=== PATIENT | male | born 1945 | race Caucasian/White ===

== ENCOUNTER 2016-09-19 11:28 | Day surgery (SDC) | payer MEDICARE, BC ==
[2016-09-16 15:07] VITALS: BMI 27.0
[~2016-09-19 11:28] MED LIST: LACTATED RINGERS 1,000 ML IV SCH
[2016-09-19] MEDS ORDERED: LACTATED RINGERS 1,000 ML IV ONE (11:52)
[2016-09-19 11:56] VITALS: TEMP 98
[2016-09-19] MEDS ORDERED: LIDOCAINE 1% 20 ML VIAL (10MG/ML) FOR IV START INTRADERMA ONE (12:04)
[2016-09-19] MEDS ORDERED: PROPOFOL 10 MG/ML 20 ML VIAL IV ONE (12:41)
[2016-09-19] MEDS ORDERED: MIDAZOLAM 2 MG/2 ML VIAL ONE (12:41)
--- NOTE | 2016-09-19 12:43 | P.GSHP ---
History of Present Illness H&P Date: 09/19/16 Chief Complaint: GERD, screening Patient today for upper and lower endoscopy. History of chronic reflux. Currently he is taking Zantac with some control the symptoms. No bowel related complaints. Past Medical History Past Medical History: CVA/TIA, GERD/Reflux Additional Past Medical History / Comment(s): CVA with TIA History of Any Multi-Drug Resistant Organisms: None Reported Past Surgical History: No Surgical Hx Reported Additional Past Surgical History / Comment(s): COLONOSCOPY Past Anesthesia/Blood Transfusion Reactions: No Reported Reaction Past Psychological History: No Psychological Hx Reported Smoking Status: Never smoker Past Alcohol Use History: Occasional Past Drug Use History: None Reported - Past Family History Mother Family Medical History: No Reported History Medications and Allergies Home Medications Medication Instructions Recorded Confirmed Type Spironolactone [Aldactone] 25 mg PO DAILY 05/12/14 09/19/16 History Aspirin EC [Ecotrin] 325 mg PO DAILY 09/18/14 09/16/16 History Ranitidine HCl [Zantac] 150 mg PO DAILY 09/16/16 09/19/16 History Allergies Allergy/AdvReac Type Severity Reaction Status Date / Time Penicillins AdvReac Unknown Verified 09/18/14 07:41 Surgical - Exam Vital Signs Temp Pulse Resp BP Pulse Ox 98.0 F 75 18 130/75 98 09/19/16 11:52 09/19/16 11:52 09/19/16 11:52 09/19/16 11:52 09/19/16 11:52 Physical exam: General: Well-developed, well-nourished HEENT: Normocephalic, sclerae nonicteric Abdomen: Nontender, nondistended Extremities: No edema Neuro: Alert and oriented Assessment and Plan (1) Colon cancer screening Narrative/Plan: Will proceed with upper and lower endoscopy at this time. Status: Acute
--- NOTE | 2016-09-19 13:01 | P.PCN ---
Date of Procedure: 09/19/16 Procedure(s) Performed: PREOPERATIVE DIAGNOSIS: GERD, screening POSTOPERATIVE DIAGNOSIS: Gastritis, small hiatal hernia, normal colon PROCEDURE: 1. EGD with biopsy 2. Colonoscopy ANESTHESIA: MAC SURGEON: Esa Rangel M.D. SPECIMENS: Antrum, ENDOSCOPIC PROCEDURE: The patient was on the endoscopy table in the left decubitus position. The Olympus gastroscope was inserted into the oropharynx and passed under direct visualization to the region of the third portion of the duodenum. From that point the scope was slowly withdrawn inspecting all surfaces carefully. There were no neoplastic inflammatory or polypoid lesions throughout the duodenum. The pylorus was widely patent. The stomach was carefully inspected. There was mild gastritis present. A biopsy of the antrum took place to rule out H. pylori. Retroflexion revealed a small sliding hiatal hernia. The esophagus was then carefully examined. There were no neoplastic inflammatory or polypoid lesions throughout the visualized esophagus. The patient was kept on the endoscopy table in the left decubitus position. The Olympus colonoscope was inserted into the anus and passed under direct visualization to the base of the cecum. The appendiceal orifice was visualized. From that point the scope was slowly withdrawn inspecting all surfaces carefully. There were no neoplastic inflammatory or polypoid lesions throughout the cecum, ascending, transverse, descending, sigmoid and rectum. There was no diverticulosis noted. Digital rectal examination was normal. The patient was taken to the recovery room in stable condition per anesthesia guidelines. RECOMMENDATIONS: Await biopsy results. Continue antiacid therapy.
[2016-09-19 13:14] VITALS: RESP 16
[2016-09-19 13:20] VITALS: BP 104/64; PULSE 66
== END 2016-09-19 14:17 | disposition home or self-care (01) ==
LOC: ORWHC2ENDO 11:28
PROVIDERS: ATTEND Surgery
DX: Z12.11 Encounter for screening for malignant neoplasm of colon (principal); K29.50 Unspecified chronic gastritis without bleeding; K44.9 Diaphragmatic hernia without obstruction or gangrene; K21.9 Gastro-esophageal reflux disease without esophagitis; Z86.73 Personal history of transient ischemic attack (TIA), and cerebral infarction without residual deficits; Z79.82 Long term (current) use of aspirin; Z79.899 Other long term (current) drug therapy
CPT/HCPCS: 88305; 88342; 43239; J2250; J2704; G0121

== ENCOUNTER → 2017-01-06 | Outpatient (CLI) | payer MEDICARE, BC ==
[2017-01-06 15:51] LABS: Rheumatoid Factor, Qnt <9 IU/mL (<12)
[2017-01-06 15:52] LABS: INR 1.2 (<1.1); Partial Thromboplastin Time 24.8 sec (22.0-30.0); Prothrombin Time 11.5 sec (9.0-12.0)
[2017-01-06 16:37] LABS: Vitamin B12 418 pg/mL
[2017-01-06 18:12] LABS: Hemoglobin A1C 5.4 % (4.2-6.1)
[2017-01-06 18:43] LABS: Treponemal Ab Non-Reactive (Non-Reactive)
[2017-01-07 07:09] LABS: ANA w/Reflex to Titer POSITIVE (NEGATIVE)
[2017-01-09 14:13] LABS: Lyme IgG/IgM Interp NEGATIVE (NEGATIVE)
== END | disposition home or self-care (01) ==
LOC: LABWHC1 14:52
PROVIDERS: ATTEND Psychiatry & Neurology Neurology
DX: G62.9 Polyneuropathy, unspecified (principal); I63.9 Cerebral infarction, unspecified
CPT/HCPCS: 36415; 82175; 82570; 82607; 82747; 83036; 83090; 83655; 83825; 84165; 84439; 84443; 85610; 85613; 85652; 85730; 86038; 86039; 86147; 86225; 86431; 86618; 86780

== ENCOUNTER → 2017-11-30 | Outpatient (CLI) | payer MEDICARE, BC ==
--- NOTE | 2017-11-30 07:56 | US ---
EXAMINATION TYPE: US duplex aorta DATE OF EXAM: 11/30/2017 COMPARISON: NONE CLINICAL HISTORY: 72-year-old male Z13.6 screening for abdominal aortic aneurysm. Leather Currier notes: No HTN, No family hx of AAA, Nonsmoker, No high cholesterol Technique: Multiple sonographic images of the abdominal aorta are obtained. FINDINGS: Abdominal Aorta: Proximal: 2.7 x 2.3 cm, ectatic. Mid: 1.6 x 2.0 cm Distal: 1.5 x 1.7 cm Bifurcation: Right- 1.0 x 0.8 cm Left- 1.1 x 0.8 cm Mild atherosclerotic irregularity is seen throughout. IMPRESSION: Mildly ectatic upper abdominal aorta (2.7 cm). No evidence for AAA.
== END | disposition home or self-care (01) ==
LOC: RADUSWWP 06:48
PROVIDERS: ATTEND Family Medicine
DX: I77.811 Abdominal aortic ectasia (principal)
CPT/HCPCS: 93979

== ENCOUNTER 2018-07-10 12:25 | Emergency (ER) | payer MEDICARE, BC ==
--- NOTE | 2018-07-10 13:22 | ED ---
General Adult HPI - General Chief complaint: Dizziness Stated complaint: Dizzy Source: patient Mode of arrival: wheelchair Limitations: no limitations - History of Present Illness Initial comments: Dictation was produced using [employer] dictation software. please excuse any grammatical, word or spelling errors. Chief Complaint: 73-year-old male with past medical history of CVA, GERD presents with brief episodes of disequilibrium. History of Present Illness: Patient was at the grocery store. He is. The only episode of disequilibrium while he [place]. Patient sat down. He states his symptoms lasted for approximately 5 minutes and went away spontaneously. Patient completed grocery shopping. He didn't want to his car and drove home. He went to go move the groceries when he spits another episode that lasted for a couple seconds. He has a history of in her ear fluid which she takes spironolactone. Patient feels a symptomatic at this time. He was slightly worried that he was having recurrent stroke. Denies any neuro deficits. The ROS documented in this emergency department record has been reviewed and confirmed by me. Those systems with pertinent positive or negative responses have been documented in the HPI. All other systems are other negative and/or noncontributory. - Related Data Home Medications Medication Instructions Recorded Confirmed Spironolactone [Aldactone] 25 mg PO DAILY 05/12/14 07/10/18 Aspirin EC [Ecotrin] 325 mg PO DAILY 09/18/14 07/10/18 Ranitidine HCl [Zantac] 150 mg PO DAILY 09/16/16 07/10/18 Allergies Allergy/AdvReac Type Severity Reaction Status Date / Time Penicillins AdvReac Unknown Verified 07/10/18 13:28 Review of Systems ROS Statement: Those systems with pertinent positive or pertinent negative responses have been documented in the HPI. ROS Other: All systems not noted in ROS Statement are negative. Past Medical History Past Medical History: CVA/TIA, GERD/Reflux Additional Past Medical History / Comment(s): CVA with TIA History of Any Multi-Drug Resistant Organisms: None Reported Past Surgical History: No Surgical Hx Reported Additional Past Surgical History / Comment(s): COLONOSCOPY Past Anesthesia/Blood Transfusion Reactions: No Reported Reaction Past Psychological History: No Psychological Hx Reported Smoking Status: Never smoker Past Alcohol Use History: Occasional Past Drug Use History: None Reported - Past Family History Mother Family Medical History: No Reported History General Exam - General Exam Comments Initial Comments: PHYSICAL EXAM: General Impression: Alert and oriented x3, not in acute distress HEENT: Normocephalic atraumatic, extra-ocular movements intact, pupils equal and reactive to light bilaterally, mucous membranes moist, impacted cerumen bilateral external auditory canals worse on the left than on the right Cardiovascular: Heart regular rate and rhythm, S1&S2 audible, no murmurs, rubs or gallops Chest: Lungs clear to auscultation bilaterally, no rhonchi, no wheeze, no rales Abdomen: Bowel sounds present, abdomen soft, non-tender, non-distended, no organomegaly Musculoskeletal: Pulses present and equal in all extremities, no peripheral edema Motor: Power 5/5 bilaterally, no focal deficits noted Neurological: CN II-XII grossly intact, no focal motor or sensory deficits noted Skin: Intact with no visualized rashes Psych: Normal affect and mood Limitations: no limitations Course Vital Signs 07/10/18 12:34 Temperature 97.8 F Pulse Rate 65 Respiratory 20 Rate Blood Pressure 127/77 O2 Sat by Pulse 98 Oximetry Medical Decision Making - Medical Decision Making ED course: 73-year-old male presents with episodic lightheadedness. Upon arrival are within acceptable limits. EKGs benign. Patient had impacted cerumen to bilateral ears worse in the left. Impacted cerumen was removed. Patient reports improved symptoms. Patient told to follow-up with his primary care physician. This time no clinical suspicion of CVA or ischemic neurologic process. Patient clear for discharge. EKG Interpretation: A 12 lead EKG was obtained. It was interpreted by myself and attending physician. There is a P wave before every QRS complex. Rate is 62, normal sinus rhythm, [place] interval 156, QS 92, QTC 426. Rhythm is [default value]. QT is not prolonged. No ST segment depression or elevation. Overall, this EKG is unremarkable Disposition Clinical Impression: Impacted cerumen of both ears Disposition: HOME SELF-CARE Condition: Good Instructions: Dizziness (ED) Is patient prescribed a controlled substance at d/c from ED?: No Referrals: Santiago Bae MD [Primary Care Provider] - 1-2 days Time of Disposition: 15:04
[2018-07-10 15:07] VITALS: BP 129/87; PULSE 86; RESP 16; TEMP 98
--- NOTE | 2018-07-14 00:23 | CDI ---
Dear Francisco Nixon DO: Please do addendum the method used for removal of impacted cerumen. Thank you, Adin Angela, Tunnel Drier Operator. If you have any questions, please contact Web Site Admin at [phone]. mtdD
== END 2018-07-10 15:12 | disposition home or self-care (01) ==
LOC: EC 12:25
DX: H61.23 Impacted cerumen, bilateral (principal); K21.9 Gastro-esophageal reflux disease without esophagitis; Z88.0 Allergy status to penicillin; Z79.82 Long term (current) use of aspirin; Z79.899 Other long term (current) drug therapy; Z86.73 Personal history of transient ischemic attack (TIA), and cerebral infarction without residual deficits
CPT/HCPCS: 69209; 93005; 99284

== ENCOUNTER → 2019-08-11 | Outpatient (CLI) | payer MEDICARE, BC ==
[2019-08-11 10:30] LABS: Basophils # (A) 0.1 k/uL (0-0.2); Basophils % (A) 1 %; Eosinophils # (A) 0.2 k/uL (0-0.7); Eosinophils % (A) 3 %; HCT 51.4 % (39.0-53.0); HGB 16.8 gm/dL (13.0-17.5); Lymphocytes # (A) 1.7 k/uL (1.0-4.8); Lymphocytes % (A) 26 %; MCH 30.5 pg (25.0-35.0); MCHC 32.7 g/dL (31.0-37.0); MCV 93.3 fL (80.0-100.0); Monocytes # (A) 0.5 k/uL (0-1.0); Monocytes % (A) 8 %; Neutrophils % (A) 59 %; Platelet Count 216 k/uL (150-450); RDW 12.2 % (11.5-15.5); WBC 6.7 k/uL (3.8-10.6)
[2019-08-11 13:08] LABS: Erythrocyte Sedimentation Rate 2 mm/hr (0-15)
[2019-08-11 16:57] LABS: African American GFR (CKD) 68.6 (60.0-200.0); Albumin 4.6 g/dL (3.80-4.90); Albumin/Globulin Ratio 2.42 (1.60-3.17); Anion Gap 8.5 mmol/L (4.00-12.00); BUN/Creat Ratio 15.83 Ratio (12.00-20.00); Calcium 9.6 mg/dL (8.7-10.3); Carbon Dioxide 28.5 mmol/L (21.6-31.8); Chol/HDL Ratio 3.83; Globulin 1.9 g/dL (1.6-3.3); LDL Cholesterol,Calculated 84.8 mg/dL (0.0-131.0); Non-African American GFR(CKD) 59.2 (60.0-200.0); Potassium 4.6 mmol/L (3.5-5.5); Total Bilirubin 0.9 mg/dL (0.3-1.2); Total Protein 6.5 g/dL (6.2-8.2); VLDL Calculation 28.2 mg/dL (5.00-40.00)
[2019-08-11 17:15] LABS: Hepatitis C IgG Antibody Non-Reactive (Non-Reactive)
[2019-08-11 19:20] LABS: Hemoglobin A1C 6.1 % (4.0-6.0)
[2019-08-12 15:19] LABS: ANA Pattern Speckled
== END | disposition home or self-care (01) ==
LOC: LABWHC1 09:50
PROVIDERS: ATTEND Psychiatry & Neurology Neurology
DX: E55.9 Vitamin D deficiency, unspecified (principal); G62.9 Polyneuropathy, unspecified; I63.9 Cerebral infarction, unspecified
CPT/HCPCS: 36415; 80053; 80061; 82607; 82747; 83036; 83090; 84153; 84439; 84443; 85025; 85652; 86038; 86039; 86803

== ENCOUNTER → 2019-08-17 | Outpatient (CLI) | payer MEDICARE, BC | END | disposition home or self-care (01) | LOC: LABWHC1 11:28 | PROVIDERS: ATTEND Psychiatry & Neurology Neurology | DX: G62.9 Polyneuropathy, unspecified (principal) | CPT/HCPCS: 36415; 86235; 86431 ==

== ENCOUNTER 2020-11-05 18:14 | Observation (INO) | payer MEDICARE, BC ==
[2020-11-05 19:08] LABS: Basophils # (A) 0.1 k/uL (0-0.2); Basophils % (A) 1 %; Eosinophils # (A) 1.5 k/uL (0-0.7); Eosinophils % (A) 14 %; HCT 49.9 % (39.0-53.0); HGB 16.8 gm/dL (13.0-17.5); Lymphocytes % (A) 29 %; MCH 30.6 pg (25.0-35.0); MCHC 33.7 g/dL (31.0-37.0); MCV 90.9 fL (80.0-100.0); Mean Platelet Volume 9.4; Monocytes # (A) 0.9 k/uL (0-1.0); Monocytes % (A) 8 %; Neutrophils # (A) 4.9 k/uL (1.3-7.7); Neutrophils % (A) 46 %; Platelet Count 206 k/uL (150-450); RBC 5.49 m/uL (4.30-5.90); RDW 12.2 % (11.5-15.5); WBC 10.6 k/uL (3.8-10.6)
--- NOTE | 2020-11-05 19:09 | XR ---
EXAMINATION TYPE: XR chest 2V DATE OF EXAM: 11/05/2020 COMPARISON: 09/18/2014 HISTORY: Chest pain TECHNIQUE: FINDINGS: Heart and mediastinum are normal. Lungs are clear. Diaphragm is normal. Bony thorax is inta ct. IMPRESSION: No active cardiopulmonary disease. Normal heart. No change.
[2020-11-05 19:18] LABS: Albumin 4.4 g/dL (3.5-5.0); Calcium 9.8 mg/dL (8.4-10.2); Potassium 4.2 mmol/L (3.5-5.1); Total Bilirubin 0.3 mg/dL (0.2-1.3)
[2020-11-05 19:20] LABS: Partial Thromboplastin Time 23.8 sec (22.0-30.0); Prothrombin Time 10.7 sec (9.0-12.0)
--- NOTE | 2020-11-05 20:14 | ED ---
General Adult HPI - General Chief complaint: Chest Pain Stated complaint: chest pain Time Seen by Provider: 11/05/20 19:40 Source: patient, RN notes reviewed Mode of arrival: wheelchair Limitations: no limitations - History of Present Illness Initial comments: 75-year-old male with a past medical history of CVA presents to the emergency room for a chief complaint of chest pain. Patient reports he has had chest pain on and off all day. States it comes and goes. Today feels like an ache in the left side of his chest. He denies shortness of breath. Patient denies any alleviating or aggravating factors. He denies any radiating pain or tearing pa in. He denies nausea or diaphoresis. Patient has a remote history of smoking. No history of high blood pressure or hypercholesterolemia. He does have a positive family history of heart disease .Patient has no other complaints at this time including shortness of breath, abdominal pain, nausea or vomiting, headache, or visual changes. - Related Data Home Medications Medication Instructions Recorded Confirmed Spironolactone [Aldactone] 25 mg PO DAILY 05/12/14 07/10/18 Aspirin EC [Ecotrin] 325 mg PO DAILY 09/18/14 07/10/18 Ranitidine HCl [Zantac] 150 mg PO DAILY 09/16/16 07/10/18 Allergies Allergy/AdvReac Type Severity Reaction Status Date / Time Penicillins AdvReac Unknown Verified 11/05/20 18:28 Review of Systems ROS Statement: Those systems with pertinent positive or pertinent negative responses have been documented in the HPI. ROS Other: All systems not noted in ROS Statement are negative. Past Medical History Past Medical History: CVA/TIA, GERD/Reflux Additional Past Medical History / Comment(s): CVA with TIA History of Any Multi-Drug Resistant Organisms: None Reported Past Surgical History: No Surgical Hx Reported Additional Past Surgical History / Comment(s): COLONOSCOPY Past Anesthesia/Blood Transfusion Reactions: No Reported Reaction Past Psychological History: No Psychological Hx Reported Smoking Status: Never smoker Past Alcohol Use History: Occasional Past Drug Use History: None Reported - Past Family History Mother Family Medical History: No Reported History General Exam Limitations: no limitations General appearance: alert, in no apparent distress Head exam: Present: atraumatic, normocephalic, normal inspection Eye exam: Present: normal appearance, PERRL, EOMI. Absent: scleral icterus, conjunctival injection, periorbital swelling ENT exam: Present: normal exam, mucous membranes moist Neck exam: Present: normal inspection. Absent: tenderness, meningismus, lymphadenopathy Respiratory exam: Present: normal lung sounds bilaterally. Absent: respiratory distress, wheezes, rales, rhonchi, stridor Cardiovascular Exam: Present: regular rate, normal rhythm, normal heart sounds. Absent: systolic murmur, diastolic murmur, rubs, gallop, clicks GI/Abdominal exam: Present: soft, normal bowel sounds. Absent: distended, tenderness, guarding, rebound, rigid Course Vital Signs 11/05/20 11/05/20 18:24 19:50 Temperature 97.8 F Pulse Rate 109 H 57 L Respiratory 18 16 Rate Blood Pressure 137/86 121/83 O2 Sat by Pulse 100 98 Oximetry EKG Findings - EKG Comments: EKG Findings:: NSR, vent rate 61, Pr int 152, Qtc 406 Medical Decision Making - Medical Decision Making Vitals are stable. HPI and physical exam as documented. EKG does show a normal sinus rhythm. Compared to previous EKG from 2018 without any significant changes. CBC CMP unremarkable. Troponin is negative. Chest x-ray shows no active cardiopulmonary disease. Given patient's family history of his father dying from a [place] at 61 as well as not having any heart workup in over 10 years we will keep patient in the hospital for repeat troponin and cardiology consultation. Case was discussed with Dr. Nixon. Case discussed with Dr. Acosta who does accept admission. - Lab Data Result diagrams: 11/05/20 18:33 11/05/20 18:33 Lab Results 11/05/20 11/05/20 11/05/20 Range/Units 18:33 18:33 18:33 WBC 10.6 (3.8-10.6) k/uL RBC 5.49 (4.30-5.90) m/uL Hgb 16.8 (13.0-17.5) gm/dL Hct 49.9 (39.0-53.0) % MCV 90.9 (80.0-100.0) fL MCH 30.6 (25.0-35.0) pg MCHC 33.7 (31.0-37.0) g/dL RDW 12.2 (11.5-15.5) % Plt Count 206 (150-450) k/uL MPV 9.4 Neutrophils % 46 % Lymphocytes % 29 % Monocytes % 8 % Eosinophils % 14 % Basophils % 1 % Neutrophils # 4.9 (1.3-7.7) k/uL Lymphocytes # 3.0 (1.0-4.8) k/uL Monocytes # 0.9 (0-1.0) k/uL Eosinophils # 1.5 H (0-0.7) k/uL Basophils # 0.1 (0-0.2) k/uL PT 10.7 (9.0-12.0) sec INR 1.0 (<1.2) APTT 23.8 (22.0-30.0) sec Sodium 141 (137-145) mmol/L Potassium 4.2 (3.5-5.1) mmol/L Chloride 106 (98-107) mmol/L Carbon Dioxide 24 (22-30) mmol/L Anion Gap 11 mmol/L BUN 18 (9-20) mg/dL Creatinine 1.00 (0.66-1.25) mg/dL Est GFR (CKD-EPI)AfAm 85 (>60 ml/min/1.73 sqM) Est GFR (CKD-EPI)NonAf 73 (>60 ml/min/1.73 sqM) Glucose 78 (74-99) mg/dL Calcium 9.8 (8.4-10.2) mg/dL Total Bilirubin 0.3 (0.2-1.3) mg/dL AST 27 (17-59) U/L ALT 24 (4-49) U/L Alkaline Phosphatase 49 (38-126) U/L Troponin I (0.000-0.034) ng/mL NT-Pro-B Natriuret Pep pg/mL Total Protein 7.0 (6.3-8.2) g/dL Albumin 4.4 (3.5-5.0) g/dL 11/05/20 11/05/20 Range/Units 18:33 18:33 WBC (3.8-10.6) k/uL RBC (4.30-5.90) m/uL Hgb (13.0-17.5) gm/dL Hct (39.0-53.0) % MCV (80.0-100.0) fL MCH (25.0-35.0) pg MCHC (31.0-37.0) g/dL RDW (11.5-15.5) % Plt Count (150-450) k/uL MPV Neutrophils % % Lymphocytes % % Monocytes % % Eosinophils % % Basophils % % Neutrophils # (1.3-7.7) k/uL Lymphocytes # (1.0-4.8) k/uL Monocytes # (0-1.0) k/uL Eosinophils # (0-0.7) k/uL Basophils # (0-0.2) k/uL PT (9.0-12.0) sec INR (<1.2) APTT (22.0-30.0) sec Sodium (137-145) mmol/L Potassium (3.5-5.1) mmol/L Chloride (98-107) mmol/L Carbon Dioxide (22-30) mmol/L Anion Gap mmol/L BUN (9-20) mg/dL Creatinine (0.66-1.25) mg/dL Est GFR (CKD-EPI)AfAm (>60 ml/min/1.73 sqM) Est GFR (CKD-EPI)NonAf (>60 ml/min/1.73 sqM) Glucose (74-99) mg/dL Calcium (8.4-10.2) mg/dL Total Bilirubin (0.2-1.3) mg/dL AST (17-59) U/L ALT (4-49) U/L Alkaline Phosphatase (38-126) U/L Troponin I <0.012 (0.000-0.034) ng/mL NT-Pro-B Natriuret Pep 121 pg/mL Total Protein (6.3-8.2) g/dL Albumin (3.5-5.0) g/dL Disposition Clinical Impression: Chest pain Disposition: ADMITTED IP TO THIS HOSP Is patient prescribed a controlled substance at d/c from ED?: No Referrals: Santiago Bae MD [Primary Care Provider] - 1-2 days Time of Disposition: 20:26
[2020-11-05] MEDS ORDERED: ASPIRIN 81 MG PO STA (20:23)
--- NOTE | 2020-11-06 00:07 | P.HPIM ---
History of Present Illness H&P Date: 11/05/20 The patient is 75-year-old male with a PMH of CVA who presented to the emergency room with complaints of chest pain. He reports that the pain started gradually earlier in the day, is an aching-like discomfort on the left side of his chest, intermittent, lasting only for second or two at a time, and has occurred 40-50 times throughout the day today, non-pleuritic, nonradiating, with no alleviating or exacerbating features. The patient denied associated shortness of breath, palpitations, dizziness, nausea, vomiting, fever, chills, or cough. Also denied lower extremity swelling, prolonged immobilization, recent travel, or leg pain. The patient did report a family history of [place] with his father passing away in his early 60s. He underwent an extensive evaluation in the emergency room with a troponin level less than 0.012, and chest x-ray unremarkable. EKG was normal sinus rhythm at [address]/T-wave changes noted as reviewed by me. Review of Systems Pertinent positives and negatives as discussed in HPI, a complete review of systems was performed and all other systems are negative. Past Medical History Past Medical History: CVA/TIA, GERD/Reflux Additional Past Medical History / Comment(s): CVA with TIA History of Any Multi-Drug Resistant Organisms: None Reported Past Surgical History: No Surgical Hx Reported Additional Past Surgical History / Comment(s): COLONOSCOPY Past Anesthesia/Blood Transfusion Reactions: No Reported Reaction Past Psychological History: No Psychological Hx Reported Smoking Status: Never smoker Past Alcohol Use History: Occasional Past Drug Use History: None Reported - Past Family History Mother Family Medical History: No Reported History Medications and Allergies Home Medications Medication Instructions Recorded Confirmed Type Spironolactone [Aldactone] 25 mg PO DAILY 05/12/14 11/05/20 History Aspirin EC [Ecotrin] 325 mg PO DAILY 09/18/14 11/05/20 History Famotidine 20 mg PO DAILY 11/05/20 11/05/20 History Allergies Allergy/AdvReac Type Severity Reaction Status Date / Time Penicillins AdvReac Unknown Verified 11/05/20 21:17 Physical Exam Vitals: Vital Signs Temp Pulse Resp BP Pulse Ox 11/05/20 23:00 62 16 139/78 98 11/05/20 19:50 57 L 16 121/83 98 11/05/20 18:24 97.8 F 109 H 18 137/86 100 Intake and Output 11/05/20 11/05/20 11/06/20 14:59 22:59 06:59 Other: Weight 95.254 kg General: non toxic, no distress, appears at stated age, normal weight Derm: no unusual rashes/lesions no unusual ecchymoses, warm, dry Head: atraumatic, normocephalic, symmetric Eyes: EOMI, no lid lag, anicteric sclera, pupils equal round reactive to light ENT: Nose and ears atraumatic, no thrush, no pharyngeal erythema Neck: No thyromegaly, no cervical lymphadenopathy, trachea midline, supple Mouth: no lip lesion, mucus membranes moist Cardiovascular: S1S2 reg, no murmur, positive posterior tibial pulse bilateral, no edema, capillary refill less than 2 seconds, no chest wall tenderness on palpation Lungs: CTA bilateral, no rhonchi, no rales , no accessory muscle use Abdominal: soft, nontender to palpation, no guarding, no appreciable organomegaly, normal bowel sounds Ext: no gross muscle atrophy, muscle strength 5 out of 5 in all 4 extremities grossly, no contractures, Neuro: CN II-XI grossly intact, light touch intact all 4 extremities, finger to nose within normal limits, Psych: Alert, oriented, appropriate affect Results CBC & Chem 7: 11/05/20 18:33 11/05/20 18:33 Labs: Abnormal Lab Results - Last 24 Hours (Table) 11/05/20 Range/Units 18:33 Eosinophils # 1.5 H (0-0.7) k/uL Assessment and Plan Plan: Chest pain, rule out ACS -Cardiology consulted -Cardiac monitoring -Trend troponin -Continue with aspirin DVT prophylaxis -Heparin subq The patient is admitted with an anticipated less than 2 midnight stay for evaluation of chest pain CODE STATUS: Full Code Discussed with: Patient Anticipated discharge date: in am Anticipated discharge place: home A total of 30 minutes was spent on the care of this complex patient more than 50% of the time was spent in counseling and care coordination.
[2020-11-06 07:32] VITALS: BP 113/76; PULSE 60; RESP 18; TEMP 97.6
[2020-11-06] MEDS ORDERED: HEPARIN SODIUM,PORCINE/PF 5,000 UNIT/0.5 ML SYRINGE SQ SCH (08:00)
[2020-11-06] MEDS ORDERED: ASPIRIN 325 MG TAB PO SCH (09:00)
--- NOTE | 2020-11-06 09:55 | P.CRDCN ---
History of Present Illness History of present illness: HISTORY OF PRESENTING ILLNESS This is a pleasant 75-year-old male past medical history significant for CVA and GERD. 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 We have been asked to see in consultation for chest pain. He states over the previous 1-2 days he has been experiencing intermittent episodes of chest discomfort in the left precordial region. He states it is very brief in nature when it occurs lasting only 1-2 seconds at a time. No specific aggravating or alleviating factors. No radiation or associated symptoms. He has had episodes of discomfort in the midsternal region in the past that has been associated with GERD, however this is different in nature and location. DIAGNOSTICS EKG reveals sinus mechanism with no acute ST or T wave abnormalities noted. Chest xray negative for an acute cardiopulmonary process. Laboratory reviewed, CBC unremarkable, sodium 141, potassium 4.2, creatinine 1.0, cardiac enzymes negative 3, proBNP 121. Current cardiac medications include Aldactone 25 mg daily. REVIEW OF SYSTEMS At the time of my exam: CONSTITUTIONAL: Denies fever or chills. CARDIOVASCULAR: Denies chest pain, shortness of breath, orthopnea, PND or palpitations. RESPIRATORY: Denies cough. GASTROINTESTINAL: Denies abdominal pain, diarrhea, constipation, nausea or vomiting. MUSCULOSKELETAL: Denies myalgias. NEUROLOGIC: Denies numbness, tingling, headacbe or weakness. ENDOCRINE: Denies fatigue, weight change, polydipsia or polyurina. GENITOURINARY: Denies burning, hematuria or urgency with micturation. HEMATOLOGIC: Denies history of anemia or bleeding. PHYSICAL EXAMINATION Blood pressure 113/76 heart rate 60 afebrile and maintaining oxygen saturation on room air. CONSTITUTIONAL: No apparent distress. HEENT: Head is normocephalic. Pupils are equal, round. Sclerae anicteric. Mucous membranes of the mouth are moist. No JVD. No carotid bruit. CHEST EXAMINATION: Lungs are clear to auscultation. No chest wall tenderness is noted on palpation or with deep breathing. HEART EXAMINATION: Regular rate and rhythm. S1, S2 heard. No murmurs, gallops or rub. ABDOMEN: Soft, nontender. Positive bowel sounds. EXTREMITIES: 2+ peripheral pulses, no lower extremity edema and no calf tenderness. NEUROLOGIC EXAMINATION: Patient is awake, alert and oriented x3. ASSESSMENT Chest pain, atypical History of CVA, unknown etiology. No prior history of afib per the patient. PLAN An acute coronary event has been ruled out. Recommend stress echocardiogram to assess for stress-induced cardiac ischemia. If stress test is normal he may be discharged from a cardiac perspective. Thank you kindly for this consultation. Nurse Practitioner note has been reviewed, I agree with a documented findings and plan of care. Patient was seen and examined. Past Medical History Past Medical History: CVA/TIA, GERD/Reflux Additional Past Medical History / Comment(s): CVA with TIA History of Any Multi-Drug Resistant Organisms: None Reported Past Surgical History: No Surgical Hx Reported Additional Past Surgical History / Comment(s): COLONOSCOPY Past Anesthesia/Blood Transfusion Reactions: No Reported Reaction Past Psychological History: No Psychological Hx Reported Smoking Status: Never smoker Past Alcohol Use History: Occasional Past Drug Use History: None Reported - Past Family History Mother Family Medical History: No Reported History Medications and Allergies Home Medications Medication Instructions Recorded Confirmed Type Spironolactone [Aldactone] 25 mg PO DAILY 05/12/14 11/05/20 History Aspirin EC [Ecotrin] 325 mg PO DAILY 09/18/14 11/05/20 History Famotidine 20 mg PO DAILY 11/05/20 11/05/20 History Allergies Allergy/AdvReac Type Severity Reaction Status Date / Time Penicillins AdvReac Unknown Verified 11/05/20 21:17 Physical Exam Vitals: Vital Signs Temp Pulse Pulse Resp BP BP Pulse Ox 11/06/20 07:31 97.6 F 60 18 113/76 95 11/06/20 05:05 61 16 120/89 98 11/05/20 23:00 62 16 139/78 98 11/05/20 19:50 57 L 16 121/83 98 11/05/20 18:24 97.8 F 109 H 18 137/86 100 Intake and Output 11/05/20 11/06/20 11/06/20 22:59 06:59 14:59 Other: Weight 95.254 kg Results 11/05/20 18:33 11/05/20 18:33 Cardiac Enzymes 11/05/20 11/05/20 11/05/20 Range/Units 18:33 18:33 22:10 AST 27 (17-59) U/L Troponin I <0.012 <0.012 (0.000-0.034) ng/mL 11/05/20 Range/Units 23:46 AST (17-59) U/L Troponin I <0.012 (0.000-0.034) ng/mL Coagulation 11/05/20 Range/Units 18:33 PT 10.7 (9.0-12.0) sec APTT 23.8 (22.0-30.0) sec CBC 11/05/20 Range/Units 18:33 WBC 10.6 (3.8-10.6) k/uL RBC 5.49 (4.30-5.90) m/uL Hgb 16.8 (13.0-17.5) gm/dL Hct 49.9 (39.0-53.0) % Plt Count 206 (150-450) k/uL Comprehensive Metabolic Panel 11/05/20 Range/Units 18:33 Sodium 141 (137-145) mmol/L Potassium 4.2 (3.5-5.1) mmol/L Chloride 106 (98-107) mmol/L Carbon Dioxide 24 (22-30) mmol/L BUN 18 (9-20) mg/dL Creatinine 1.00 (0.66-1.25) mg/dL Glucose 78 (74-99) mg/dL Calcium 9.8 (8.4-10.2) mg/dL AST 27 (17-59) U/L ALT 24 (4-49) U/L Alkaline Phosphatase 49 (38-126) U/L Total Protein 7.0 (6.3-8.2) g/dL Albumin 4.4 (3.5-5.0) g/dL Current Medications Generic Name Dose Route Start Last Admin Trade Name Freq PRN Reason Stop Dose Admin Aspirin 325 mg 11/06/20 09:00 11/06/20 07:26 Aspirin 325 Mg Tab PO 325 mg DAILY DERRICK Administration Heparin Sodium (Porcine) 5,000 unit 11/06/20 08:00 11/06/20 07:26 Heparin Sodium,Porcine/Pf 5,000 Unit/0.5 Ml Syringe SQ 5,000 unit Q8HR DERRICK Administration Intake and Output 11/05/20 11/06/20 11/06/20 22:59 06:59 14:59 Other: Weight 95.254 kg 11/05/20 18:33 11/05/20 18:33
[2020-11-06 10:54] LABS: Chol/HDL Ratio 4.38; LDL Cholesterol,Calculated 70.2 mg/dL (0.0-131.0); VLDL Calculation 37.8 mg/dL (5.00-40.00)
--- NOTE | 2020-11-06 11:41 | P.DS ---
Providers Date of admission: 11/05/20 20:21 Expected date of discharge: 11/06/20 Attending physician: Erica Acosta MD Consults: 11/05/20 20:26 Consult Physician Routine Consulting Provider: [facility] Consult Reason/Comments: chest pain Do you want consulting provider notified?: Yes Primary care physician: Santiago Bashir [facility] Course: This is a 75-year-old male with past medical history noted below significant for reported TIA in the past and GERD that presented to the emergency room with chest pain. Patient does not have any cardiac history. Patient was evaluated in the ER and 12-lead EKG showed no acute ischemic changes. He was placed on observation. Serial troponin remained negative. ACS ruled out. Patient was seen and evaluated by cardiology. He underwent a stress echocardiogram that was reported negative. Awaiting final report to be uploaded in the chart. Patient was cleared by cardiology for discharge. He will be discharged home in a stable condition. Cholesterol levels within acceptable range with LDL of 70. Follow- up with PCP as directed. For further details about this hospitalization please refer to the electronic chart. Plan - Discharge Summary Discharge Rx Participant: No New Discharge Prescriptions: Continue Spironolactone [Aldactone] 25 mg PO DAILY Aspirin EC [Ecotrin] 325 mg PO DAILY Famotidine 20 mg PO DAILY Discharge Medication List Spironolactone [Aldactone] 25 mg PO DAILY 05/12/14 [History] Aspirin EC [Ecotrin] 325 mg PO DAILY 09/18/14 [History] Famotidine 20 mg PO DAILY 11/05/20 [History] Follow up Appointment(s)/Referral(s): Santiago Bae MD [Primary Care Provider] - 1-2 days Jose Ham MD [STAFF PHYSICIAN] - 3 Weeks (The office will call you with an appointment date and time. ) Patient Instructions/Handouts: Chest Pain (DC), Heart Healthy Diet (DC) Discharge Disposition: HOME SELF-CARE
--- NOTE | 2020-11-06 13:38 | ECHOS ---
STRESS ECHOCARDIOGRAM LUMASON: N/A Vial INDICATIONS: Chest pain MEDICATIONS: BASELINE HEART RATE: 62 BASELINE BLOOD PRESSURE: 100/59 MAXIMUM HEART RATE: 144 MAXIMUM BLOOD PRESSURE: 215/91 85% MPHR: 123 100% MPHR: 145 METS: 9.1 MAXIMUM STAGE REACHED: 3 TOTAL EXERCISE TIME: 7 minutes 30 seconds CLINICAL INFORMATION: Baseline rhythm is sinus mechanism, rate 62, normal axis and intervals, minor nonspecific ST-T wave changes. Baseline blood pressure 100/59 mmHg. Patient exercised on Vega protocol for 7 minutes 30 seconds reaching peak rate 144 beats per minute which is equal to 99% maximum predicted heart rate. Peak blood pressure 215/91 mmHg. Test was terminated secondary to fatigue. There was no chest pain. Electrocardiograph monitoring revealed a 0.[address]-segment depression. At peak exercise, rare couplets were noted. Baseline echocardiogram revealed normal wall motion. At peak exercise, there was normal wall motion augmentation with no hypokinesis or dyskinesis. CONCLUSION: 1. Good exercise tolerance with nondiagnostic electrocardiograph stress testing secondary to baseline EKG abnormality with rare PVCs and couplets. 2. Normal stress echocardiogram with no evidence of stress-induced ischemia. MMODL / IJN: [id number] /
== END 2020-11-06 11:53 | disposition home or self-care (01) ==
LOC: EC 18:14 → 6NMEDSUR 20:21
PROVIDERS: ADMIT Internal Medicine; ATTEND Internal Medicine
DX: R07.89 Other chest pain (principal); K21.9 Gastro-esophageal reflux disease without esophagitis; Z79.82 Long term (current) use of aspirin; Z79.899 Other long term (current) drug therapy; Z88.0 Allergy status to penicillin; Z87.891 Personal history of nicotine dependence; Z86.73 Personal history of transient ischemic attack (TIA), and cerebral infarction without residual deficits; Z20.822 Contact with and (suspected) exposure to COVID-19; Z82.49 Family history of ischemic heart disease and other diseases of the circulatory system
CPT/HCPCS: 93005 ×2; 99285; 36415; 93351; 83880; 80061; 80053; 84484; 85025; 85610; 85730; 87636; 71046; G0378 ×2; J1644